=== PATIENT | male | born 1975 | race African-American/Black ===

== ENCOUNTER 2017-03-07 21:42 | Emergency (ER) | payer OTHER ==
[~2017-03-07] VITALS: Ht 190.5 cm; Wt 88.3 kg
[2017-03-07 21:45] VITALS: Ht 190.5 cm; Wt 88.3 kg
[2017-03-07] MEDS ORDERED: OXYMETAZOLINE HCL 0.05% NA SPR 15 ML BTL ONE (21:49)
[2017-03-07] MEDS ORDERED: ACETAMINOPHEN 500 MG TAB PO STA (22:36)
[2017-03-07 22:41] VITALS: TEMP 36.8
[2017-03-07] MEDS ORDERED: CEPH500C2 PO (23:40)
[2017-03-07] MEDS ORDERED: CEPHALEXIN 500MG HOME PACK 1 EA BTL PO ONE (23:45)
--- NOTE | 2017-03-07 23:55 | EMERGENCY ROOM VISIT NOTE ---
History First contact with patient: 21:47 Chief Complaint: NOSE BLEED (MAJOR) Stated Complaint: SEVERE NOSE BLEED History of Present Illness The patient is a 41 year old male who presents to the Emergency Room with complaints of nosebleed for the past 2 hours. Patient states he was going to the bathroom when his left nostril started bleeding. No recent epistaxis. No recent illness. No trauma to the area. Patient states he went to medical and was sent here. Patient states it is profusely bleeding out of his left nostril. Patient has a history of high blood pressure. He is not currently on medication. Patient denies chest pain, dyspnea, fever, chills, lightheadedness , dizziness, weakness. Review of Systems See HPI for pertinent positives & negatives. A total of 10 systems reviewed and were otherwise negative. Past Medical/Surgical History Hypertension Social History Smoking Status: Current Every Day Smoker Occupation Status: other (prisoner) Current/Historical Medications Scheduled Cephalexin Monohydrate (Keflex), 500 MG PO QID Physical Exam Vital Signs Date Time Temp Pulse Resp B/P (MAP) Pulse Ox O2 Delivery O2 Flow Rate FiO2 03/07/17 23:34 72 18 187/111 100 Room Air 03/07/17 22:41 36.8 62 18 224/130 100 Room Air 03/07/17 21:45 84 16 161/113 96 Room Air Physical Exam VITALS: Vitals are noted on the nurse's note and reviewed by myself. Vital signs hypertensive GENERAL: Prisoner in [facility], anxious-appearing, in no acute distress, nondiaphoretic, well-developed well-nourished. SKIN: The skin was without rashes, erythema, edema, or bruising. There is no tenting of the skin. Capillary reflex less than 2 seconds. HEAD: Normocephalic atraumatic. EARS: External auditory canals clear, tympanic membranes pearly cox without erythema or effusion bilaterally. EYES: Pupils equal round and reactive to light and accommodation. Conjunctivae without injection, sclerae without icterus. Extraocular movements intact. NOSE: Patent, left nostril with copious amount of blood from the Kiesselbach's plexus, right nostril with no bleeding or septal hematoma. No sinus tenderness. MOUTH: Mucous membranes moist. Pharynx without erythema or exudate. Uvula midline. Airway patent. Tongue does not deviate. No bleeding down the back of the throat. NECK: Supple without nuchal rigidity. No lymphadenopathy. No thyromegaly. Cervical spine is nontender. No JVD. HEART: Regular rate and rhythm LUNGS: Clear to auscultation bilaterally without wheezes, rales or rhonchi. No dullness to percussion. No retractions or accessory muscle use. ABDOMEN: Positive bowel sounds x 4. Normal tympanic percussion. Soft, nontender, without masses or organomegaly. Moses sign negative. No guarding or rebound tenderness. MUSCULOSKELETAL: No muscle atrophy, erythema, or edema noted. NEURO: Patient was alert and oriented to person place and time. Normal sensation to light and sharp touch. No focal neurological deficits. Medical Decision & Procedures Medications Administered Medications (Trade) Dose Ordered Sig/Francoise Route Start Time Stop Time Status Last Admin Dose Admin Acetaminophen (Tylenol Tab) 1,000 mg NOW STAT PO 03/07/17 22:36 03/07/17 22:37 DC 03/07/17 22:45 1,000 MG Procedure Anterior Nasal Packing Indication: Left nostril epistaxis Verbal consent obtained. Risks and benefits were explained with the usual customary discussion. A time out was taken. Clots were removed with suction. The left naris was prepped with Afrin and lidocaine. A 5.5-cm nasal balloon was placed in a standard fashion. The patient could not tolerate discomfort and demanded that I remove this. A 4.5 cm nasal balloon was placed in standard fashion with 5 mL of air. The patient tolerated this well. Hemostasis was achieved. No complications. ED Course Prior records/ancillary studies reviewed. Triage Nursing notes reviewed. Additional history obtained from correction officers. The patient's history was concerning for epistaxis. Differential diagnosis: Etiologies such as anterior epistaxis, coagulopathy, traumatic injury, fracture , septal hematoma, posterior epistaxis as well as other pathologies were entertained. Physical examination findings: As above. Anterior bleeding source. ER treatment provided: Direct pressure Intranasal phenylephrine Anterior nasal packing as above Keflex PO On reassessment the patient felt better. Diagnostics interpreted by me: Deferred This appears to be consistent with left anterior epistaxis and elevated blood pressure. Patient was observed for over an hour with no rebleeding. He was informed to go to the [facility] for the night and stayed there until the [facility] doctor evaluate him in the morning. He was placed on antibiotics. He was informed to monitor his blood pressure was high. He is advised to return to the ER immediately for bleeding, weakness, dyspnea, worsening signs or symptoms or as needed. By the evaluation outlined above emergent etiologies such as coagulopathy, traumatic injury, fracture, septal hematoma, posterior epistaxis, as well as others were deemed relatively unlikely. The pt informed about the findings as listed above. All questions were answered and pleased with the treatment. Return instructions were outlined and the patient was discharged in stable condition. Outpatient prescription management: Keflex Referral: The patient was referred to [facility] doctor and/or ENT for a recheck of the current condition Case reviewed with my attending. Medical Decision As above Medication Reconcilliation Current Medication List: was personally reviewed by me Blood Pressure Screening Patient's blood pressure: Elevated blood pressure Blood pressure disposition: Referred to PCP Impression Primary Impression: Epistaxis Additional Impression: Hypertension Departure Information Dispostion Home / Self-Care Condition GOOD Prescriptions Cephalexin Monohydrate (KEFLEX) 500 Mg Cap 500 MG PO QID for 5 Days, #20 CAP Prov: Silvana Goldstein .TARA 03/07/17 Forms WORK / SCHOOL INSTRUCTIONS, HOME CARE DOCUMENTATION FORM, IMPORTANT VISIT INFORMATION Patient Instructions My [facility], ED Nosebleed Additional Instructions Monitor your blood pressure. It was high today. Avoid scratching, rubbing, picking, or blowing your nose. The veneer drier tailer your nasal passages the more likely they are to bleed. The following two products are available [id number] at most drug stores/pharmacies. Snyder Pender nasal spray or similar generic saline spray to keep the nose moist 3 to 4 times a day. Apply Chataignier gel 2-3 times daily to the nostrils to keep them moist. If bleeding recurs apply direct pressure for an uninterrupted 20 minutes. On and off pressure is much less effective because it will disturb the clots that are forming. If the bleeding is still a problem after 20 minutes or is so heavy despite the pressure return to the emergency department. Continue current medications. Nasal packing should be removed in 2-3 days. 5cc's of air is in the Rapid Rhino Rocket. Follow-up with your primary care physician or ENT in 2 to 3 days for a recheck of your current condition. Return to ER sooner for bleeding, fevers, pain, worsening signs or symptoms or as needed. Problem Qualifiers
[2017-03-08 00:01] VITALS: BP 176/100; PULSE 88; O2SAT 98
== END 2017-03-08 00:03 | disposition home or self-care (01) ==
LOC: C.EDB 21:44 → C.EDA 03-08 00:03
DX: R04.0 Epistaxis (principal); I10 Essential (primary) hypertension; F17.200 Nicotine dependence, unspecified, uncomplicated